=== PATIENT | female | born 1985 | race Caucasian/White ===

== ENCOUNTER 2024-09-16 00:30 | Emergency (ER) | payer BC ==
[2024-09-16] MEDS: Adenosine 6 MG/2 ML SDV IVPUSH ONE ×2 (00:44→01:06)
[2024-09-16 00:59] LABS: BASOPHILS ABSOLUTE AUTO 0.09 K/uL (0.00-0.10); BASOPHILS PERCENT AUTO 0.7 % (0.1-1.3); EOSINOPHILS ABSOLUTE AUTO 0.47 K/uL (0.00-0.40); EOSINOPHILS PERCENT AUTO 3.8 % (0.0-5.4); HEMATOCRIT 40.8 % (34.3-46.0); HEMOGLOBIN 13.7 g/dL (11.2-15.5); IMMATURE GRAN ABSOLUTE AUTO 0.04 K/uL (0.00-0.23); IMMATURE GRAN PERCENT AUTO 0.3 % (0.0-0.7); LYMPHOCYTES ABSOLUTE AUTO 4.69 K/uL (0.8-3.3); LYMPHOCYTES PERCENT AUTO 37.9 % (11.4-47.7); MEAN CORPUSCULAR HEMOGLOBIN 31.3 pg (31.6-35.5); MEAN CORPUSCULAR HGB CONC 33.6 g/dL (31.6-35.5); MEAN CORPUSCULAR VOLUME 93.2 fL (81.4-99.0); MONOCYTES ABSOLUTE AUTO 1.19 K/uL (0.20-0.90); MONOCYTES PERCENT AUTO 9.6 % (3.3-12.6); NEUTROPHILS PERCENT AUTO 47.7 % (40.0-78.1); PLATELET COUNT,PLT 369 K/uL (130-375); RED BLOOD CELL COUNT 4.38 M/uL (3.77-5.24); WHITE BLOOD CELL COUNT,WBC 12.4 K/uL (3.2-11.0)
[2024-09-16 01:12] LABS: BLOOD UREA NITROGEN,BUN 13 mg/dL (7-18); CALCIUM 9.1 mg/dL (8.5-10.1); CARBON DIOXIDE,CO2 23 mmol/L (21-32); CHLORIDE,CL 103 mmol/L (100-108); CREATININE 1.2 mg/dL (0.6-1.0); ESTIMATED GFR 59 mL/min (>60); GLUCOSE RANDOM 103 mg/dL (74-106); MAGNESIUM 1.9 mg/dL (1.8-2.4); POTASSIUM,K 3.9 mmol/L (3.6-5.2); SODIUM,NA 138 mmol/L (140-148); TROPONIN I HIGH SENSITIVITY 5.1 pg/mL (<=60.3)
[2024-09-16 01:14] LABS: ANION GAP 15.9 mmol/L (5.0-14.0)
[2024-09-16] MEDS: Sodium Chloride 0.9% 1,000 ML IV SCH (01:17)
[2024-09-16] MEDS: Diltiazem 25 MG/5 ML SDV IVPUSH ONE (01:33)
== END 2024-09-16 02:37 | disposition home or self-care (01) ==
LOC: JP.ED 00:30
DX: I47.10 Supraventricular tachycardia, unspecified (principal)
CPT/HCPCS: 36415; 80048; 83735; 84484; 85025; 93005; 96361; 96374; 96375; 99291; J0153; J3490; J7030